=== PATIENT | male | born 1960 | race African-American/Black ===

== ENCOUNTER 2024-01-16 12:47 | Emergency (ER) | payer MEDICAID ==
[~2024-01-16] VITALS: Ht 177.8 cm; Wt 62.1 kg
[2024-01-16] MEDS ORDERED: IBUP-1455 PO (13:28)
[2024-01-16] MEDS ORDERED: LIDO2SOL26 MT (13:28)
[2024-01-16] MEDS ORDERED: METH4PAK PO (13:28)
[2024-01-16] MEDS ORDERED: PENI500T2 PO (13:28)
[2024-01-16 13:49] VITALS: BP 119/81; PULSE 75; RESP 18; TEMP 98.8; O2SAT 97
== END 2024-01-16 13:52 | disposition home or self-care (01) ==
LOC: ER 12:47
DX: J35.8 Other chronic diseases of tonsils and adenoids (principal); F12.10 Cannabis abuse, uncomplicated

== ENCOUNTER 2024-01-18 04:38 | Emergency (ER) | payer MEDICAID ==
[~2024-01-18] VITALS: Ht 177.8 cm; Wt 63.4 kg
[2024-01-18 04:38] VITALS: BP 150/99; PULSE 61; RESP 20; O2SAT 95
[~2024-01-18 04:38] MED LIST: IBUP-1455 PO; LIDO2SOL26 MT; METH4PAK PO; PENI500T2 PO
== END 2024-01-18 08:04 | disposition left against medical advice (07) ==
LOC: ER 04:38
DX: J02.9 Acute pharyngitis, unspecified (principal); Z53.21 Procedure and treatment not carried out due to patient leaving prior to being seen by health care provider

== ENCOUNTER 2024-07-16 13:37 | Emergency (ER) | payer MEDICAID ==
[~2024-07-16] VITALS: Ht 177.8 cm; Wt 63.2 kg
[~2024-07-16 13:37] MED LIST changes: +ACET500T58 PO; +CLIN1CAP70 PO
--- NOTE | 2024-07-16 15:22 | ED.PDOC ---
Musculoskeletal HPI Comments 63 y.o male presents to the ED for a chief complaint of right shoulder pain x 1 day s/p helping neighbor carry boxes. Patient has limited ROM and reports sharp 10/10 pain. Patient denies any numbness to region. Patient also complains of lower back pain, states history of chronic back pain but wants to be evaluated for it for any new changes . Chief Complaint: Upper Extremity Time Seen by MD: 14:30 Primary Care Provider: UNKNOWN Reviewed Notes: Nurses Notes, Medications, Allergies Allergies: Coded Allergies: NO KNOWN ALLERGIES (Unverified , 11/11/15) Home Meds Active Scripts Acetaminophen (Acetaminophen) 500 Mg Tab, 500 MG PO Q4HP PRN, #20 TAB Prov:KENNETH GRADY PAC 01/20/24 Ibuprofen Micronized (Ibuprofen) 800 Mg Tab, 800 MG PO Q8HP PRN, #20 TAB Prov:KENNETH GRADY PAC 01/20/24 Clindamycin Hcl (Clindamycin Hcl) 300 Mg Cap, 300 MG PO QID for 10 Days, #40 CAP Prov:KENNETH GRADY PAC 01/20/24 Methylprednisolone (Medrol Dosepak) 4 Mg Win, 4 MG PO UD for 7 Days, #21 TAB 0 Refills UAD Prov:HENRIETTA REYES NP 01/16/24 Lidocaine HCl (Mouth-Throat) (Lidocaine HCl Viscous) 2 % Elisa, 15 ML MT TID for 2 Days, #200 ML 0 Refills Prov:HENRIETTA REYES NP 01/16/24 Ibuprofen Micronized (Ibuprofen) 800 Mg Tab, 800 MG PO TID for 10 Days, #30 TAB 0 Refills Prov:HENRIETTA REYES NP 01/16/24 Penicillin V Potassium (Veetids) 500 Mg Tab, 1 TAB PO BID for 10 Days, #20 TAB 0 Refills Prov:HENRIETTA REYES [employer]MOOTH PLATER 01/16/24 Information Source: Patient Mode of Arrival: Ambulatory Location: Right Extremity Location: Shoulder Timing: Days (1) Severity: Moderate Able to Move Extremity: No Bear Weight: Limited Pain: Moderate Mechanism: None Circumstances: Work Related Onset of Symptoms: After Trauma Symptoms: Pain DVT Risk Factors: NONE Associated signs and symptoms: Shoulder pain Past Medical History PAST MEDICAL HISTORY: Depression, Denies Surgical History: Denies all surgeries Family History Family History: Unobtainable Social History Smoker: Non-Smoker, Other Alcohol: Occasionally Drugs: Marijuana Lives In: Home Constitutional: denies: chills, diaphoresis, fatigue, fever, malaise, sweats, weakness, others EENTM: denies: blurred vision, double vision, ear bleeding, ear discharge, ear drainage, ear pain, ear ringing, eye pain, eye redness, hearing loss, mouth pain, mouth swelling, nasal discharge, nose bleeding, nose congestion, nose pa in, photophobia, tearing, throat pain, throat swelling, voice changes, others Respiratory: denies: cough, hemoptysis, orthopnea, SOB at rest, shortness of breath, SOB with excertion, stridor, wheezing, others Cardiovascular: denies: chest pain, dizzy spells, diaphoresis, Dyspnea on exertion, edema, irregular heart beat, left arm pain, lightheadedness, palpitations, PND, syncope, others Gastrointestinal: denies: abdomen distended, abdominal pain, blood streaked bowels, constipated, diarrhea, dysphagia, difficulty swallowing, hematemesis, melena, nausea, poor appetite, poor fluid intake, rectal bleeding, rectal pain, vomiting, others Genitourinary: denies: burning, dysuria, flank pain, frequency, hematuria, incontinence, penile discharge, penile sore, pain, testicle pain, testicle swelling, urgency, others Neurological: denies: dizziness, fainting, headache, left sided numbness, left sided weakness, numbness, paresthesia, pre-existing deficit, right sided numbness, right sided weakness, seizure, speech problems, tingling, tremors, weakness, others Musculoskeletal: reports: others (right shoulder pain ); denies: back pain, gout, joint pain, joint swelling, muscle pain, muscle stiffness, neck pain Integumetry: denies: bruises, change in color, change in hair/nails, dryness, laceration, lesions, lumps, rash, wounds, others Allergic/Immunocompromised: denies: Difficulty Healing, Frequent Infections, Hives, Itching, others Hematologic/Lymphatic: denies: anemia, blood clots, easy bleeding, easy bruising, swollen glands, others Endocrine: denies: excessive hunger, excessive sweating, excessive thirst, excessive urination, flushing, intolerance to cold, intolerance to heat, unexplained weight gain, unexplained weight loss, others Psychiatric: denies: anxiety, bipolar disorder, depression, hopeless, panic disorder, schizophrenia, sleepless, suicidal, others All Other Systems: Reviewed and Negative Physical Exam General Appearance: No Apparent Distress, Normal HEENT: Normal ENT Inspection, Pharynx Normal, TMs Normal Neck: Full Range of Motion, Non-Tender, Normal, Normal Inspection Respiratory: Chest Non-Tender, Lungs Clear, No Accessory Muscle Use, No Respiratory Distress, Normal Breath Sounds Cardiovascular: No Edema, No JVD, No Murmur, No Gallop, Normal Peripheral Pulses, Regular Rate/Rhythm Breast Exam: Deferred Gastrointestinal: No Organomegaly, Non Tender, No Pulsatile Mass, Normal Bowel Sounds, Soft Genitalia: Deferred Pelvic: Deferred Rectal: Deferred Extremities: No calf tenderness, Normal capillary refill, Normal inspection, Normal range of motion, Non-tender, No pedal edema Musculoskeletal : Location: Right Extremity Location: Shoulder Apperance: Tenderness: Moderate Neurologic: Other (Right shoulder: No bruising, redness, swelling. ) Cerebellar Function: Normal Reflexes: Normal Skin: Dry, Normal Color, Warm Lymphatic: No Adenopathy Was a procedure done? Was a procedure done?: No Differential Diagnosis EXT Differential Diagnosis: Fracture, Sprain, Dislocation, DJD, Contusion, Strain, Arthritis, Bursitis X-Ray, Labs, Meds, VS Vital Signs Date Time Temp Pulse Resp B/P (MAP) Pulse Ox O2 Delivery O2 Flow Rate FiO2 07/16/24 14:01 97.3 65 16 138/95 (109) 100 Time of 1ST Reevaluation: 15:22 Reevaluation 1ST: Unchanged Patient Education/Counseling: Diagnosis, Treatment, Prognosis, Need For Follow Up Family Education/Counseling: No Family Present Additional Information Previous visit documents reviewed: 01/20/24 abscess The following tests were ordered, and results were reviewed by me: X rays Additional Information was gathered from interviewing the following independent historians: none I reviewed and agreed with the following test results read by other providers: X rays I discussed treatment and results with medical personnel and: patient Departure 1 Departure Time of Disposition: 15:48 Impression: Primary Impression: Coccyalgia Additional Impression: Right shoulder strain Qualified Codes: S46.911A - Strain of unspecified muscle, fascia and tendon at shoulder and upper arm level, right arm, initial encounter Disposition: HOME / SELF CARE / HOMELESS Condition: Good e-Prescriptions Ibuprofen Micronized (MOTRIN TABLET) 600 Mg Tb 600 MG PO TID PRN, #40 TAB *Black box warning-NSAIDS can increase risk of PR & hypertension, GI irritation, ulceration, bleed, perferation. Do not use post cardiac surgery. Use short duration/lowest effective dose. Prov: JACQUES JOHNSON MD 07/16/24 Discharged With: Self Critical Care Note Critical Care Time?: No Stability Stability form required: No I personally scribed for JACQUES JOHNSON MD ([email or web address]) on 07/16/24 at 15:22. Electronically submitted by Marian Terry ([facility]). JACQUES JOHNSON MD Jul 16, 2024 15:22
[2024-07-16] MEDS ORDERED: IBU600T PO (15:49)
--- NOTE | 2024-07-16 15:50 | DVH ---
CLINICAL INDICATION: injury TECHNIQUE: 4 radiographic views of the right shoulder were obtained. Comparison: None FINDINGS/IMPRESSION: There is no evidence of acute fracture or dislocation. The visualized joint space is well maintained. The alignment is anatomical. There is no radiopaque foreign body.
--- NOTE | 2024-07-16 15:52 | DVH ---
CLINICAL INDICATION: pain TECHNIQUE: 2 radiographic views of the sacrum were obtained. Comparison: None FINDINGS/IMPRESSION: Overlying bowel gas and fecal material limits evaluation of the sacrum. Otherwise, no evidence of acu te traumatic fractures. Moderate to severe right-sided L4-L5 facet osteoarthritis.
[2024-07-16 16:43] VITALS: BP 132/85; PULSE 82; RESP 20; TEMP 97; O2SAT 100
== END 2024-07-16 16:40 | disposition home or self-care (01) ==
LOC: ER 13:37
DX: S46.911A Strain of unspecified muscle, fascia and tendon at shoulder and upper arm level, right arm, initial encounter (principal); M53.3 Sacrococcygeal disorders, not elsewhere classified; F12.90 Cannabis use, unspecified, uncomplicated; Z79.899 Other long term (current) drug therapy; X58.XXXA Exposure to other specified factors, initial encounter; Y93.89 Activity, other specified; Y92.89 Other specified places as the place of occurrence of the external cause; Y99.8 Other external cause status
CPT/HCPCS: 72220; 73030